=== PATIENT | female | born 1990 | race Two or more races ===

== ENCOUNTER 2020-08-05 22:27 | Emergency (ER) | payer OTHER ==
--- NOTE | 2020-08-05 23:55 | ER Document Report ---
ED Medical Screen (RME) - General Chief Complaint: Lower Abdominal Pain Stated Complaint: ABDOMINAL PAIN Time Seen by Provider: 08/05/20 23:51 Mode of Arrival: Ambulatory Information source: Patient Notes: 29-year-old female presents to ED for complaint of burning frequency and urgency with urine for few weeks. She states her last menstrual period was June 12. She states she is very irregular due to endometriosis. She states she did have a laparoscopic surgery for endometriosis in the past as well as wisdom teeth removed. 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 Patient is alert oriented respirations regular nonlabored speaking in full sentences. We will send the urine for urinalysis, culture, and . I have greeted and performed a rapid initial assessment of this patient. A comprehensive ED assessment and evaluation of the patient, analysis of test results and completion of medical decision making process will be conducted by an additional ED providers. Physical Exam - Vital signs Vitals: Temp Pulse Resp BP Pulse Ox 98.8 F 99 18 107/75 98 08/05/20 22:36 08/05/20 22:36 08/05/20 22:36 08/05/20 22:36 08/05/20 22:36 Course - Vital Signs Vital signs: Temp Pulse Resp BP Pulse Ox 98.8 F 99 18 107/75 98 08/05/20 22:36 08/05/20 22:36 08/05/20 22:36 08/05/20 22:36 08/05/20 22:36
[2020-08-06 00:41] LABS: APPEARANCE,URINE SLIGHTLY-CLOUDY; BILIRUBIN,URINE NEGATIVE (NEGATIVE); COLOR,URINE YELLOW; GLUCOSE, URINE NEGATIVE (NEGATIVE); KETONES,URINE TRACE mg/dL (NEGATIVE); LEUKOCYTE ESTERASE,URINE MODERATE (NEGATIVE); NITRITE,URINE NEGATIVE (NEGATIVE); PROTEIN,URINE 30 mg/dL (NEGATIVE); URINE SPECIFIC GRAVITY 1.035
[2020-08-06] MEDS ORDERED: NITROFURANTOIN MONOHYD/M-CRYST 100 MG CAPSULE PO ONE (03:43)
--- NOTE | 2020-08-06 03:48 | ER Document Report ---
ED GI/ - General Chief Complaint: Urinary Problem Stated Complaint: ABDOMINAL PAIN Time Seen by Provider: 08/05/20 23:51 Primary Care Provider: [facility] [Provider Group] - Follow up as needed Mode of Arrival: Ambulatory Notes: 29-year-old female presents to the emergency room complaining of dysuria for the past 2 weeks. History of frequent UTIs. States she is been taking cranberry juice and try to drink extra water without relief. Denies fevers. Denies vaginal discharge. 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 TRAVEL OUTSIDE OF THE [place] IN LAST 30 DAYS: No Past Medical History - General Information source: Patient - Social History Smoking Status: Current Every Day Smoker Frequency of alcohol use: Occasional Drug Abuse: None Family History: Reviewed & Not Pertinent Review of Systems - Review of Systems Constitutional: No symptoms reported EENT: No symptoms reported Cardiovascular: No symptoms reported Respiratory: No symptoms reported Gastrointestinal: No symptoms reported Genitourinary: Dysuria Musculoskeletal: No symptoms reported Skin: No symptoms reported Neurological/Psychological: No symptoms reported -: Yes All other systems reviewed and negative Physical Exam - Vital signs Vitals: Temp Pulse Resp BP Pulse Ox 98.8 F 99 18 107/75 98 08/05/20 22:36 08/05/20 22:36 08/05/20 22:36 08/05/20 22:36 08/05/20 22:36 - Notes Notes: GENERAL: Mild acute distress, non-toxic appearance. HEAD: Normal with no signs of head trauma. EYES: PERRLA, EOMI, conjunctiva normal, no discharge. EARS: Hearing grossly intact. NOSE: Normal. THROAT: Oropharynx is normal. NECK: Normal range of motion, no tenderness, supple, no lymphadenopathy, No adenopathy, no JVD. CHEST: Clear breath sounds bilaterally. No wheezes, rales, or rhonchi. CARDIAC: Regular rate and rhythm. S1 and S2, without murmurs, gallops, or rubs. VASCULAR: No Edema. Peripheral pulses normal and equal in all extremities. ABDOMEN: Normal and soft with no tenderness, no masses or pulsatile masses. No organomegaly. Positive bowel sounds x4. No CVA tenderness noted bilaterally. GASTROINTESTINAL: Bowel sounds normal LYMPATHTIC: No lymphadenopathy noted. MUSCULOSKELETAL: Good range of motion of all major joints. Extremities without clubbing, cyanosis or edema. NEUROLOGICAL: Alert and oriented x 3. No focal sensory or strength deficits. Speech normal. Follows commands appropriately. PSYCHIATRIC: Normal Affect, judgement and mood. SKIN: Normal appearance with no rashes or lesions. Course - Re-evaluation Re-evalutation: 08/06/20 03:44 Patient is resting comfortably she is pain-free on exam. Reviewed urinalysis with patient. Counseled the importance of drinking 8 to 10 glasses of water a day. Take medications as prescribed. If not improving in 2 days or if symptoms worsen she needs to immediately return to the ER for possible IV antibiotics and further evaluation. She is currently afebrile with no CVA tenderness noted on exam. Aware that we have sent her urinalysis for culture she will be notified if we need to make any changes to her antibiotics based on her culture report. Patient was given strict return to the emergency room guidelines. Return for any new or worsening symptoms. All questions were answered. Patient verbalized understanding and agrees with plan of care. - Vital Signs Vital signs: Temp Pulse Resp BP Pulse Ox 98.8 F 72 18 111/71 97 08/05/20 22:36 08/06/20 03:55 08/06/20 03:55 08/06/20 03:55 08/06/20 03:55 - Laboratory Laboratory results interpreted by me: 08/06/20 00:10 Urine Protein 30 H Urine Ketones TRACE H Urine Blood MODERATE H Urine Urobilinogen 4.0 H Ur Leukocyte Esterase MODERATE H Discharge - Discharge Clinical Impression: UTI (urinary tract infection) Qualifiers: Urinary tract infection type: site unspecified Hematuria presence: without hematuria Qualified Code(s): N39.0 - Urinary tract infection, site not specified Condition: Stable Disposition: HOME, SELF-CARE Instructions: Nitrofurantoin ([facility]), Urinary Tract Infection ([facility]) Additional Instructions: Your urine shows findings consistent with a urinary tract infection. Please take all the antibiotics as directed even if your symptoms have improved. Please follow-up with your primary care physician as needed. Return to emergency room if you develop fever >101F, persistent vomiting, become lethargic, have severe pain in your sides, or any other symptoms that are concerning to you. Prescriptions: Nitrofurantoin Monohyd/M-Cryst [Macrobid 100 mg Capsule] 100 mg PO BID #14 cap Phenazopyridine HCl [Pyridium 200 mg Tablet] 200 mg PO TID 3 Days #6 tablet Referrals: [facility] [Provider Group] - Follow up as needed
[2020-08-06] MEDS ORDERED: PHENAZOPYRIDINE HCL 200 MG TABLET PO ONE (03:50)
[2020-08-06 07:33] VITALS: BP 111/71
== END 2020-08-06 03:55 | disposition home or self-care (01) ==
LOC: ER 22:27
DX: N39.0 Urinary tract infection, site not specified (principal); F17.200 Nicotine dependence, unspecified, uncomplicated; Z87.440 Personal history of urinary (tract) infections
CPT/HCPCS: 99283; 87086; 81025; 87088; 81001; 87186; J3490; J8499